=== PATIENT | female | born 1985 | race Caucasian/White ===

== ENCOUNTER 2024-11-02 13:30 | Outpatient (CLI) | payer BC, SELFPAY ==
--- NOTE | 2024-11-02 13:45 | CRLHL7_ITS ---
For Patients: As a result of the Cures Act, medical imaging exams and procedure reports are released immediately into your electronic medical record. You may view this report before your referring provider. If you have questions, please contact your health care provider. OB ULTRASOUND FIRST TRIMESTER INDICATION: Dating and viability. TECHNIQUE: Real time smith scale imaging of the fetus was performed. transvaginal. LMP: 09/02/2024. RICKIE by LMP: 06/09/2025. GA: 8 w, 5 d. Previous US: No. CRL: 2.3 cm. 9 w 0 d. RICKIE: 06/07/2025. FHR: 173 BPM. Gestational sac: 3.8 cm. Appears within normal limits. Yolk sac: 4.2 mm. Appears within normal limits. Right ovary: 4.2 x 2.1 x 3.3 cm. Left ovary: 4.9 x 2.1 3.0 cm. CL. IMPRESSION: 1. Single living intrauterine with sonographic gestational age 9 weeks 0 days and sonographic due date 06/07/2025. Exam performed with transvaginal technique. 2. Likely chronic endometrioma within the right ovary measuring 2.1 x 1.2 x 2.1 cm. 3. Right anterior intramural fibroid measures 2.6 x 2.1 x 2.7 cm. 4. Inferior subchorionic hemorrhage measures 2.4 x 1.2 x 1.9 cm. 5. Incidental corpus luteal cyst left ovary. Manuel Botello M.D. Diagnostic Radiologist [email or web address] THUAN/radha JR/Dictated by: Manuel Botello MD @ 11/03/2024 9:56:00 AM (Electronically Signed)
== END 2024-11-02 13:31 | disposition home or self-care (01) ==
LOC: US 13:32
PROVIDERS: PCP Physician Assistant; Visit Provider Physician Assistant
DX: Z34.91 Encounter for supervision of normal pregnancy, unspecified, first trimester (principal)
CPT/HCPCS: 76817; 83021; 86592; 86703; 86704; 86706; 86762; 86787; 86803; 86850; 86900; 86901; 87086; 87340; 87491; 87591

== ENCOUNTER 2024-12-04 13:14 | Outpatient (CLI) | payer BC, SELFPAY | END 2024-12-04 13:15 | disposition home or self-care (01) | LOC: NFLDREF 12-07 04:02 | PROVIDERS: Visit Provider Obstetrics & Gynecology | DX: R39.9 Unspecified symptoms and signs involving the genitourinary system (principal) | CPT/HCPCS: 87086 ==

== ENCOUNTER 2025-01-24 11:54 | Outpatient (CLI) | payer BC, SELFPAY | END 2025-01-24 11:55 | disposition home or self-care (01) | LOC: US 11:54 | PROVIDERS: Visit Provider Obstetrics & Gynecology | DX: O09.522 Supervision of elderly multigravida, second trimester (principal); Z3A.20 20 weeks gestation of pregnancy | CPT/HCPCS: 76811 ==

== ENCOUNTER 2025-03-01 18:39 | Outpatient (CLI) | payer BC, SELFPAY ==
--- NOTE | 2025-03-01 18:57 | W.PM.OBO ---
OB Outpatient HPI History of Present Illness Date Seen: 03/01/25 History of Present Illness: Aby is a 39 yo woman at 25 5/7 weeks' gestation who calls triage line with complaint of sudden onset of sharp lower abdominal pain after moving from bent to standing position. This began suddenly this afternoon. She has persistent pain at that same site on her left abdomen. She denies bleeding or loss of fluid. OB Problem List: # history of myomectomy and treatment for endometriosis, with 4 fibroids being removed, largest transmural 7-8 cm, endometrial cavity entered Operative report is scanned Surgeon recommended delivery. Will treat as classical uterine incision, with delivery at 37 weeks gestation, per MFM. Growth US at 30-32 weeks: Scheduled with M 04/11/2025 [] # AMA Genetic screening: low risk, male, carrier screening pending Level 2 ultrasound: 01/24/2025 (see below) # depression Lexapro 20 mg # BMI 34.2 Aspirin 81 mg Hemoglobin A1c: 5.3 # tobacco use. 15 cigarettes per day pre . At new OB was down to 1-2 per day, feels she is close to quitting Offered nicotine replacement products, she will reach out if she feels she needs them # varicella nonimmune Immunization # right ovarian cyst, likely endometrioma Meds Home Medications and Allergies Home Medications ?Medication ?Instructions ?Recorded ?Confirmed ?Type [id number] 3-fat com #1 27 cap PO 11/02/24 02/28/25 History mg-1 mg-300 mg capsule acetaminophen 500 mg tablet 500 mg PO Q6H PRN 11/02/24 03/01/25 History (Tylenol Extra Strength) escitalopram oxalate 20 mg tablet 20 mg PO QDAY 11/02/24 03/01/25 History (Lexapro) cat hair std allergenic ext 1 ml .Route MONTHLY 11/27/24 03/01/25 History aspirin 81 mg chewable tablet 81 mg PO QDAY 12/25/24 03/01/25 History famotidine 20 mg tablet (Pepcid) 20 mg PO BID 03/01/25 03/01/25 History Allergies Allergy/AdvReac Type Severity Reaction Status Date / Time cefaclor ([facility] Allergy Intermediate Rash Verified 03/01/25 19:03 cats Allergy Uncoded 02/28/25 11:37 [facility] Surgical History (Updated 12/25/24 @ 17:03 by Maria M Curran MD) History of myomectomy ?Z98.890 - Other specified postprocedural states (ICD-10) Social History (Updated 11/02/24 @ 15:35 by Rhea Sykes PA-C) Narrative: 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 Marital status: . Yarsanism/cultural needs: no. Chemical or radiation exposure: no. Pre- tobacco use: 15 per day. Pre- alcohol use: Twice per month Current tobacco use: 1-2 per day. Current alcohol use: no. Recreational drug use: no. Dietary restrictions: no. Blood transfusion acceptable in an emergency: yes. PSYCHOSOCIAL HISTORY: History of depression or currently depressed: yes. Current or past physical, emotional, or sexual mistreatment: Denies. Problems that will make it hard to make it to appointments: Denies. What is your current living situation?: I presently have a place to live Problems where you live: no known problems In the past 12 months, utilities in danger of being shut off: no In past 12 months, lack of transportation kept you from medical appts, meetings, work, or getting things needed for daily living: no In the past 12 mos, have been you worried that your food would run out before you had money to buy more?: never true In the past 12 mos, the food you bought just didn't last and you didn't have money to buy more?: never true Smoking Status: Former smoker How often does anyone, including family, friends and others, physically hurt you: never How often does anyone, including family, friends and others, insult or talk down to you: never How often does anyone, including family, friends and others, threaten you with harm: never How often does anyone, including family, friends and others, scream or curse at you: never History History 2 Elective abortions Para 0 Spontaneous abortions 1 Hx # Term Pregnancies Ectopic pregnancies Hx # Pregnancies Multiple births Number of Living Children 0 OB - H&P: Exam Physical Exam Narrative: Gen - NAD Abd - Soft, uterus nontender in general. There is one site adjacent to the left cornual area that is tender to the touch, but the fundus itself is not tender. No groin pain. NST: Baseline 140 / accelerations to 150 / no decelerations / moderate variability. No contractions on monitor Assessment and Plan Assessment and plan (1) , high-risk: Status: Acute (2) Abdominal pain affecting : Status: Acute Plan I favor abdominal wall pain as etiology. I am not suspicious for abruption given soft uterus that is not general tender and lack of bleeding. status is reassuring I recommended Tylenol and application of heat or cold. We discussed option of muscle relaxant should symptoms persist. She is to call if symptoms worsen.
[2025-03-01 19:03] VITALS: BP 124/74; PULSE 89; PULSE 93; RESP 16; TEMP 36.8; O2SAT 98
[2025-03-01] MEDS: ACETAMINOPHEN 500 MG TABLET 1000 MG PO (19:45)
[2025-03-01 19:47] LABS: Appearance Urine Slightly Cloudy (Clear); Bilirubin Urine Negative (Negative); Blood Urine Negative (Negative); Glucose Urine Negative (Negative); Ketones Urine Trace (Negative); Leukocyte Esterase Urine Negative (Negative); Nitrite Urine Negative (Negative); Protein Urine Trace (Negative); Specific Gravity Urine 1.025 (1.000-1.030); Urobilinogen Urine 0.2 (0.2-1.0); pH Urine 6.5 (5.0-8.5)
--- NOTE | 2025-03-01 20:13 | PC.OBNST ---
NST Note NST Note Start: 03/01/25 18:45 Freq: ONCE Status: Active Protocol: Document 03/01/25 20:12 DOUG (Rec: 03/01/25 20:13 DOUG [id number]) NST Note 2 Para (# of births) 0 EDC 06/09/25 Gestational Age In Weeks & Days 25 Weeks & 5 Days Patient Presented with Complaint(s) of Pain If Pain, describe location Left sided abdominal pain Reactive Yes Appropriate for Gestational Age Yes BETY Fabian, BETY Date 03/01/25 Reactive Yes Appropriate for Gestational Age Yes BETY Torre, BETY Date 03/01/25 OB NST charge Yes Complete NST Note via Write Note Yes The provider's electronic signature indicates the NST is reactive/appropriate for gestational age. *Note to provider: If an addendum is required, open the patient's chart and click on the note under the Nurse/Allied Health tab.
[2025-03-01 20:20] LABS: Color Urine Dark yellow (Yellow)
[2025-03-01 20:21] LABS: Amorphous Sediment Urine Few; RBC Urine 0-2 (0-2); Squamous Epithelial Cell Urine Few (None-Few); WBC Urine 0-2 (0-5)
[2025-03-01 20:22] LABS: Calcium Oxalate Crystals Urine Few; Mucus Urine Few
== END 2025-03-01 19:53 | disposition home or self-care (01) ==
LOC: OB OUT 18:40 → OB 18:40
PROVIDERS: Visit Provider Obstetrics & Gynecology
DX: O26.892 Other specified pregnancy related conditions, second trimester (principal); R10.9 Unspecified abdominal pain; Z3A.25 25 weeks gestation of pregnancy
CPT/HCPCS: 59025; 81001; 81003; 87086; G0463; A9270

== ENCOUNTER 2025-03-20 11:17 | Outpatient (CLI) | payer BC, SELFPAY | END 2025-03-20 11:18 | disposition home or self-care (01) | LOC: NFLDREF 03-22 17:08 | PROVIDERS: Visit Provider Obstetrics & Gynecology | DX: Z34.93 Encounter for supervision of normal pregnancy, unspecified, third trimester (principal); Z3A.28 28 weeks gestation of pregnancy | CPT/HCPCS: 86592 ==

== ENCOUNTER 2025-03-22 08:33 | Outpatient (CLI) | payer BC, SELFPAY | END 2025-03-22 08:34 | disposition home or self-care (01) | LOC: NFLDREF 03-24 04:21 | PROVIDERS: Visit Provider Obstetrics & Gynecology | DX: O24.419 Gestational diabetes mellitus in pregnancy, unspecified control (principal) | CPT/HCPCS: 82951; 82952 ==

== ENCOUNTER 2025-04-11 11:36 | Outpatient (CLI) | payer BC, SELFPAY ==
--- OUTSIDE RECORDS SUMMARY | 2025-04-11 11:39 | XMS_ITS | Clinical Summary ---
Author Organization [facility] Address [address] [place] [id number] Care Team Providers Care Systems Design Engineer Name Role Phone Clinic, No Pcp Or Primary Care Provider Unavaila ble Allergies Active Allergy Reactions Criticality Noted Date Comments Cats (Fur, Dander, Saliva) 0 Cefaclor Rash Medium 06/06/2010 Chlorpheniramine-Phenylpropan *Unknown 2024 Medications ibuprofen (ADVIL; MOTRIN) 800 mg tabletIndications :Dysmenorrhea TAKE 1 TABLET BY MOUTH EVERY 8 HOURS WITH FOOD IF NEEDED FOR MENSTRUAL CRAMPS. 60 Tablet 11/21/19 22 Active acetaminophen (TYLENOL) 325 mg tabletIndications :Fibroids, submucosal Take 1-2 Tablets (325-650 mg) by mouth every 4 hours if needed (mild pain). Max acetaminophen dose: 4000mg in 24 hrs. 100 Tablet 02/14/20 22 Active INHALANT IMMUNOTHERAPY 4 Vial Active INHALANT IMMUNOTHERAPY 4 Vial Active INHALANT IMMUNOTHERAPY Inject subcutaneous. Cats, Ragweed, Dust Mites, Cockroach, Mold, Mice, Grass, trees and Weeds 03/09/20 22 Active escitalopram oxalate (LEXAPRO) 20 mg tabletIndications :Anxiety disorder, unspecified type,Moderate episode of recurrent major depressive disorder (HC) Take 1 Tablet (20 mg) by mouth once daily. 90 Tablet 3 04/03/20 24 Active econazole nitrate cream 1 % creamIndications: Tinea versicolor Apply thin layer to affected areas daily until resolved, then once weekly for maintenance. 85 g 2 02/21/20 25 Active Active Problems Problem Noted Date Diagnosed Date Vitamin D deficiency 01/06/2021 Low ferritin 01/06/2021 Allergic conjunctivitis, bilateral 07/06/2019 Allergic rhinitis 07/06/2019 Overview (02/01/2025): Immunotherapy: 03/09/2022 (gets them at [facility]) - 2024 Antigens: Vial A: Mice, Grass, Trees & Weeds Vial B: Cats, Ragweed, Dust Mites, Cockroach & Rhizopus Endometriosis 05/12/2014 Family history of endometriosis 04/09/2014 Dysmenorrhea 04/09/2014 Major depression 03/07/2014 Anxiety disorder 03/07/2014 Eczema Cat allergies Fibroids, submucosal Estimated Date of Delivery Comme nts Yes 06/09/2025 Resolved Problems Problem Noted Date Diagnosed Date Resolved Date Primary dysmenorrhea 05/12/2014 021 Low back pain 04/09/2014 04/03/2024 Encounters Date Type Department Care Team Description 03/15/2025 1:00 PM CDT Nurse/Clinic Staff Only [facility] [address] [place] [address] Immunization/Inject ion (ALLERGY INJECTIONS ) 03/15/2025 Travel 02/20/2025 11:40 AM CDT Telemedicine [facility] [address] [address] Sierra Kimball PA Telehealth (no vitals taken today) 02/20/2025 Travel 02/12/2025 1:00 PM CDT Nurse/Clinic Staff Only [facility] [address] [place] [address] Immunization/Inject ion (ALLERGY INJECTIONS ) 02/12/2025 Travel 02/01/2025 9:30 AM CDT Telemedicine [facility] [address] [facility] [address] [facility] [address] [place] [address] Paul Ash MD Telehealth (No vitals taken); Follow Up (Follow up on allergy shots, doing well, no concerns) 02/01/2025 Travel 01/15/2025 1:00 PM CDT Nurse/Clinic Staff Only [facility] [address] [facility] [place] [address] Immunization/Inject ion (ALLERGY INJECTIONS ) 01/15/2025 Travel from Last 3 Months Immunizations Immunization Administration Dates Next Due COVID-19 vaccine ([employer] 30mcg/0.3mL) P F, MDV 11/28/2020,11/08/2020 MMR 05/27/2000 Td (Age >=7 Years) 05/27/2010,05/27/2000 Tdap 03/02/2017 Family History Medical History Relation Name Comments Heart Disease Father Other Maternal Aunt endometriosis/ heavy cycles? Cancer-ovarian Maternal Grandmother Other Maternal Grandmother uterine issues? Endometriosis Mother Relation Name Status Comments Brother Alive Father (Age 60) Maternal Aunt Maternal Grandmother Mother Alive Social History Tobacco Use Types Packs/Day Years Used Date Smoking Tobacco: Former Cigarettes 1 16 0 10/18/2008 - 11/03/2024 Smokeless Tobacco: Never Tobacco Cessation:Counseling Given: Not Answered Alcohol Use Standard Drinks/Week Comments Not Currently 2 (1 standard drink = 0.6 oz pur e alcohol) twice/week PHQ-2 Answer Date Recorded PHQ-2 TOTAL SCORE 1 04/03/2024 Social Connections Answer Date Recorded Do you often feel lonely or isolated from those around you? 0 04/03/2024 Financial Resource Strain Answer Date R ecorded Difficulty of Paying Living Expenses 3 04/03/2024 Difficulty of Paying Living Expenses Not on file 04/03/2024 Food Insecurity Answer Date Recorded Do you worry your food will run out before you are able to buy more? 1 04/03/2024 Transportation Needs Answer Date Record ed Does lack of transportation keep you from medica l appointments? 1 04/03/2024 Does lack of transportation keep you from work, meetings or getting things that you need? 1 04/03/2024 Housing Stability Answer Date Recorded What is your housing situation today? 1 04/03/2024 Utilities Answer Date Recorded Do you have trouble paying f or utilities (for example, heat, electricity, water, phone)? 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 Gender Identity Not on file Sexual Orientation Not on file Occupation Industry Job Start Date Job End Date STUDENT Not on file Not on file Not on file Obstetrics History Para Term AB IAB SAB Ectopic Multiple Livin g Live Births 2 0 0 0 1 0 1 0 0 0 0 Date Outcome GA Total Labor Labor/2nd/3rd Weight Sex Type Anes PTL Juhi A1 A5 Name Clin SAB Current Last Filed Vital Signs Vital Sign Reading Time Taken Comments Blood Pressure 128/78 04/03/2024 7:33 AM CDT Pulse 79 04/03/2024 7:33 AM CDT Temperature 36.8 C (98.2 F) 01/27/2023 9:24 AM CDT Respiratory Rate 16 01/27/2023 9:24 AM CDT Oxygen Saturation 99% 11/01/2023 12:48 PM PACKING AND FINAL ASSEMBLY SUPERVISOR Inhaled Oxygen Concentration - - Weight 83.2 kg (183 lb 8 oz) 04/03/2024 7:33 AM CDT Height 161 cm (5' 3.39) 04/03/2024 7:33 AM CDT Body Mass Index 32.11 04/03/2024 7:33 AM CDT Plan of Treatment Health Maintenance Due Date Last Done Comments Hepatitis B series for 19+ (1 of 3 - 19+ 3-dose series) 2005 Pap test for age 21-65 01/04/2024 , 04/04/2018, 04/01/2015 ([facility]) COVID-19 vaccine series ( season) 2024 11/28/2020, 11/08/2020 BMI (ht and wt on same day) for age 18+ 04/03/2025 04/03/2024, 09/21/2022, 07/06/2022, Additional history exists Depression screening for age 12+ 04/03/2025 04/03/2024, 05/12/2023, 04/13/2022, Additional history exists Influenza Vaccine (Season Ended) 2025 Tetanus booster 03/02/2027 03/02/2017, 05/18, 05/27/2000 Tdap Completed 03/02/2017 HIV for age 15-65 Completed 04/03/2024 Hepatitis C screening for age 18-79 Completed 04/03/2024 Pneumococcal series for age 6-49 Aged Out No longer eligible based on patient's age to complete this topic RSV vaccine for adults or (No Doses Required) Completed Procedures Procedure Name Priority Date/Time Associated Diagnosis Comments ANTI HIV 1/2 Routine 04/03/2024 8:37 AM CDT Encounter for screening for HIV ANTI HCV Routine 04/03/2024 8:37 AM CDT Need for hepatitis C screening test FURNACE CHECKER THIN PREP PAP SCREEN IMAGED Routine 01/03/2021 1:00 PM CDT Cervical cancer screening from Last 3 Months or Most Recently Relevant to Health Maintenance Results * ANTI HCV (04/03/2024 8:37 AM CDT) HEPATITIS C ANTIBODY Non-Reacti ve Non-React nehemias 04/03/2024 2:00 PM CDT [facility] [employer] Comment:Please note, per www .CDC.gov: If a patient is known to be at high risk of HCV infection, or is symptomatic, and the physician's suspicion of HCV infection is high, HCV RNA testing is often employed and is of diagnostic value, even after an initial negative anti-HCV test result. Blood BLOOD SPECIMEN / Unknown Venipuncture / Unknown 04/03/2024 8:37 AM CDT 04/03/2024 8:37 AM CDT Swathi PRADO SEND OUTS Final Result [facility] [address] [place] [address], * ANTI HIV 1/2 (04/03/2024 8:37 AM CDT) HIV-1/HIV-2 SCREEN Non-Reacti ve Non-Reacti ve 04/03/2024 2:57 PM CDT [facility] Comment:HIV-1 p24 and HIV-1/ HIV-2 Ab Not Detected. Blood BLOOD SPECIMEN / Unknown Venipuncture / Unknown 04/03/2024 8:37 AM CDT 04/03/2024 8:37 AM CDT us Swathi PRADO SEND OUTS Final Result [facility] [employer] [facility] [address] [place] [address], [place] * FURNACE CHECKER THIN PREP PAP SCREEN IMAGED (01/03/2021 1:00 PM CDT) Case Report Gynecologic Cytology Report Case: [id number] Authorizing Provider: Kisha Mccoy PA Collected: 01/03/2021 1300 Ordering Location: [facility] [place] Received: 01/03/2021 1719 Clinic First Screen: [place] Specimen: FURNACE CHECKER ThinPrep Vial Screening, Cervical 01/14/2021 6:51 PM CDT [facility] INTERPRETATION/ RESULT NEGATIVE FOR INTRAEPITHELIAL LESION OR MALIGNANCY (NIL) (none) 01/14/2021 6:51 PM CDT [facility] [employer] [facility] at 1851 CDT ORGANISM(S) Shift in rodney suggestive of bacterial vaginosis 01/14/2021 6:51 PM CDT [facility] SPECIMEN ADEQUACY Satisfactory for evaluation No endocervical component seen 01/14/2021 6:51 PM CDT [facility] [employer] [facility] HPV REQUEST HPV if ASCUS 01/14/2021 6:51 PM CDT [facility] [employer] [facility] Date of LMP 12/23/2020 01/14/2021 6:51 PM CDT [facility] [employer] [facility] Last Pap Date 04/04/18 01/14/2021 6:51 PM CDT [facility] Last Pap Result NIL 6:51 PM CDT [facility] Abnormal Pap or [place] Bx in last 5 years No 01/14/2021 6:51 PM CDT [facility] Menstrual Status Regular Periods 01/14/2021 6:51 PM CDT [facility] [place] Bx Done Today No 01/14/2021 6:51 PM CDT [facility] Additional Information None given 01/14/2021 6:51 PM CDT [facility] Comment: Cytology is screened at [facility] - [address], [place] [address] and [facility] - [address], [place] [address] and [facility] - [address] [place] [address] [facility] - [address], [place] [address] Automated Review Successful 01/14/2021 6:51 PM CDT [facility] Comment:Specimen processed s uccessfully by automated core filer device, ThinPrep Imaging System, [employer] Note The pap test is a screening technique, not a diagnostic procedure. It is used primarily to screen for squamous cancers and precursor lesions. Published studies have shown that it is subject to both false negative and false positive results. The pap test should not be used as the sole means to diagnose or exclude pre-malignant and malignant lesions. 01/14/2021 6:51 PM CDT [facility] Other (Cervical) Non-Blood / Unknown 01/03/2021 1:00 PM CDT 01/03/2021 5:19 PM CDT us Kisha PRADO PATHOLOGY/CYTOLOGY Final Resul t [facility] [address] [place] [address], [place] from Last 3 Months or Most Recently Relevant to Health Maintenance Insurance [facility] Advance Directives * Full Code (Latest Code Status on File) Date Activated Date Inactivated Comments 02/13/2022 11:33 AM 02/13/2022 5:26 PM Question Answer Comments Code Status Discussion: Unable to Assess Preferences, Provider to review later Care Teams Systems Design Engineer Relationship Specialty Start Date End Date Clinic, No Pcp Or . PCP - General 09/21/22
--- OUTSIDE RECORDS SUMMARY | 2025-04-12 00:34 | XMS_ITS | Clinical Summary ---
Author Organization [employer] [facility] Address [address] [place] [id number] Care Team Providers Care Pediatric Immunologist Name Role Phone Clinic, No Pcp Or [...] Overview (02/01/2025): Immunotherapy: 03/09/2022 (gets them at [facility]) - 2024 Antigens: Vial A: Mice, Grass, [...] 03/15/2025 1:00 PM CDT Nurse/Clinic Staff Only [facility] [address] [place] [address] Immunization/Inject ion (ALLERGY INJECTIONS ) 03/15/2025 Travel 02/20/2025 11:40 AM CDT Telemedicine [facility] [address] [address] Sierra Kimball PA Telehealth (no vitals taken today) 02/20/2025 Travel 02/12/2025 1:00 PM CDT Nurse/Clinic Staff Only [facility] [address] [place] [address] Immunization/Inject ion (ALLERGY INJECTIONS ) 02/12/2025 Travel 02/01/2025 9:30 AM CDT Telemedicine [facility] [address] [facility] [address] [facility] [address] [place] [address] Paul Ash MD Telehealth (No vitals taken); Follow Up (Follow up on allergy shots, doing well, no concerns) 02/01/2025 Travel 01/15/2025 1:00 PM CDT Nurse/Clinic Staff Only [facility] [address] [facility] [place] [address] Immunization/Inject ion (ALLERGY INJECTIONS ) 01/15/2025 Travel from Last 3 Months Immunizations Immunization Administration Dates Next Due COVID-19 vaccine ([employer] 30mcg/0.3mL) P F, MDV 11/28/2020,11/08/2020 MMR 05/27/2000 [...] on file Legal 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 Gender Identity Not on file Sexual Orientation [...] CDT Oxygen Saturation 99% 11/01/2023 12:48 PM PURCHASE REQUEST EDITOR Inhaled Oxygen Concentration - - Weight 83.2 [...] 01/04/2024 , 04/04/2018, 04/01/2015 [facility] COVID-19 vaccine series ( season) 2024 11/28/2020, [...] CDT Need for hepatitis C screening test PROVINCE ARCHIVIST THIN PREP PAP SCREEN IMAGED Routine 01/03/2021 1:00 PM CDT Cervical cancer screening from Last 3 Months or Most Recently Relevant to Health Maintenance Results * ANTI HCV (04/03/2024 8:37 AM CDT) HEPATITIS C ANTIBODY Non-Reacti ve Non-React nehemias 04/03/2024 2:[address] [facility] Comment:Please note, per www .CDC.gov: [...] CDT Swathi PRADO SEND OUTS Final Result [facility] [address] [place] [address], * ANTI HIV 1/2 (04/03/2024 8:37 AM CDT) HIV-1/HIV-2 SCREEN Non-Reacti ve Non-Reacti ve 04/03/2024 2:57 PM CDT [facility] Comment:HIV-1 p24 and HIV-1/ HIV-2 Ab Not Detected. Blood BLOOD SPECIMEN / Unknown Venipuncture / Unknown 04/03/2024 8:37 AM CDT 04/03/2024 8:37 AM CDT us Swathi PRADO SEND OUTS Final Result [facility] [address] [place] [address], [place] * PROVINCE ARCHIVIST THIN PREP PAP SCREEN IMAGED (01/03/2021 1:00 PM CDT) Case Report Gynecologic Cytology Report Case: [id number] Authorizing Provider: Kisha Mccoy PA Collected: 01/03/2021 1300 Ordering Location: [employer] [place] Received: 01/03/2021 1719 Clinic First Screen: [employer] Specimen: PROVINCE ARCHIVIST ThinPrep Vial Screening, Cervical 01/14/2021 6:51 PM CDT [facility] INTERPRETATION/ RESULT NEGATIVE FOR INTRAEPITHELIAL LESION OR MALIGNANCY (NIL) (none) 01/14/2021 6:51 PM CDT [facility] at 1851 CDT ORGANISM(S) Shift in rodney suggestive of bacterial vaginosis 01/14/2021 6:51 PM CDT [facility] SPECIMEN ADEQUACY Satisfactory for evaluation No endocervical component seen 01/14/2021 6:51 PM CDT [facility] HPV REQUEST HPV if ASCUS 01/14/2021 6:51 PM CDT [facility] Date of LMP 12/23/2020 01/14/2021 6:51 PM CDT [facility] Last Pap Date 04/04/18 01/14/2021 6:51 PM CDT [facility] Last Pap Result NIL 6:51 PM CDT [facility] Abnormal Pap or [place] Bx in last 5 years No 01/14/2021 6:51 PM CDT [facility] Menstrual Status Regular Periods 01/14/2021 6:51 PM CDT [facility] [place] Bx Done Today No 01/14/2021 6:51 PM CDT [facility] Additional Information None given 01/14/2021 6:51 PM CDT [facility] Comment: Cytology is screened at [facility] - [address], [place] [address] and [facility] - [address], [place] [address] and [facility] - [address] [place] [address] Interpreted at [facility] - [address], [place] [address] Automated Review Successful 01/14/2021 6:51 PM CDT [facility] Comment:Specimen processed s uccessfully by automated trim machine adjuster device, ThinPrep Imaging System, [email or web address] Note The pap test is a [...] and malignant lesions. 01/14/2021 6:51 PM CDT [facility] Other (Cervical) Non-Blood / Unknown 01/03/2021 1:00 PM CDT 01/03/2021 5:19 PM CDT us Kisha PRADO PATHOLOGY/CYTOLOGY Final Resul t [facility] [address] [place] [address], [place] from Last 3 Months or Most Recently Relevant to Health Maintenance Insurance [facility] Advance Directives * Full Code (Latest Code Status on File) Date Activated Date Inactivated Comments 02/13/2022 11:33 AM 02/13/2022 5:26 PM Question Answer Comments Code Status Discussion: Unable to Assess Preferences, Provider to review later Care Teams Pediatric Immunologist Relationship Specialty Start Date End Date Clinic, No Pcp Or . PCP - General 09/21/22
== END 2025-04-11 11:37 | disposition home or self-care (01) ==
PROVIDERS: Visit Provider Obstetrics & Gynecology
DX: O09.523 Supervision of elderly multigravida, third trimester (principal); O99.213 Obesity complicating pregnancy, third trimester; O24.419 Gestational diabetes mellitus in pregnancy, unspecified control; O09.93 Supervision of high risk pregnancy, unspecified, third trimester; Z3A.31 31 weeks gestation of pregnancy
CPT/HCPCS: 76816

== ENCOUNTER 2025-04-18 13:18 | Outpatient (CLI) | payer BC, SELFPAY | END 2025-04-18 13:19 | disposition home or self-care (01) | LOC: NFLDREF 13:19 | PROVIDERS: Visit Provider Registered Nurse | DX: O47.9 False labor, unspecified (principal) | CPT/HCPCS: 87086 ==

== ENCOUNTER 2025-04-27 12:46 | Outpatient (CLI) | payer BC, SELFPAY ==
--- NOTE | 2025-04-27 13:45 | CRLHL7_ITS ---
For Patients: As a result of the Century Cures Act, medical imaging exams and procedure reports are released immediately into your electronic medical record. You may view this report before your referring provider. If you have questions, please contact your health care provider. INDICATION: Gestational diabetes COMPARISON: Obstetric ultrasound on April 11, 2025 and priors TECHNIQUE: Obstetric ultrasound, biophysical profile examination, transabdominal approach, utilizing grayscale and color Doppler as needed. FINDINGS: number: 1 heart rate: 143 bpm. Position: Vertex. Placental Position: Anterior. Amniotic fluid: DVP 9 cm, GONZALO 24 cm Cervix: Not visualized BPP Score: Fluid: 2 Breathin Movement: 2 Tone: 2 Total: 6 IMPRESSION: 1. Biophysical profile score of 6 with no points for respiratory activity. 2. GONZALO at the upper limits of normal measuring 24 centimeters. Dictated by James King MD @ 04/27/2025 2:35:54 PM (Electronically Signed)
== END 2025-04-27 12:47 | disposition home or self-care (01) ==
LOC: US 12:46
PROVIDERS: Visit Provider Physician Assistant
DX: Z34.90 Encounter for supervision of normal pregnancy, unspecified, unspecified trimester (principal)
CPT/HCPCS: 76819

== ENCOUNTER 2025-04-28 10:10 | Outpatient (CLI) | payer BC, SELFPAY ==
--- NOTE | 2025-04-28 10:14 | CRLHL7_ITS ---
For Patients: As a result of the Century Cures Act, medical imaging exams and procedure reports are released immediately into your electronic medical record. You may view this report before your referring provider. If you have questions, please contact your health care provider. INDICATION: Biophysical profile. COMPARISON: BPP from April 27, 2025. Technique : Biophysical profile. Findings: Gross body movements, tone and respiratory activity are unremarkable. Largest amniotic fluid pocket measures 8.6 cm in depth. BPP score is 8/8. The placenta is anterior with no previa. heart rate 132 beats per minute and regular. Single viable intrauterine gestation of 34 weeks duration. Impression: 1. BPP score 8/8. 2. heart rate 132 beats per minute and regular. Dictated by Andres Moreno MD @ 04/28/2025 12:01:56 PM (Electronically Signed)
[2025-04-28 10:24] VITALS: PULSE 105; O2SAT 98
[2025-04-28 10:27] VITALS: BP 127/83; PULSE 106; RESP 16; TEMP 36.8
--- NOTE | 2025-04-28 12:02 | PC.OBNST ---
NST Note NST Note Start: 04/28/25 10:14 Freq: ONCE Status: Active Protocol: Document 04/28/25 12:00 BAW (Rec: 04/28/25 12:02 BAW No Response) NST Note 2 Para (# of births) 0 EDC 06/09/25 Gestational Age In 34 Weeks & 0 Days Weeks & Days High Risk Factors Diabetes - Gestational Diet Controlled Patient Presented Other with Complaint(s) of Other Complaints BPP and NST d/t 03/27 on 04/27/25 Reactive Yes Appropriate for Yes Gestational Age BETY Vazquez RNC Date 04/28/25 Reactive Yes Appropriate for Yes Gestational Age BETY Gonzales MD Date 04/28/25 OB NST charge Yes Complete NST Note Yes via Write Note The provider's electronic signature indicates the NST is reactive/appropriate for gestational age. *Note to provider: If an addendum is required, open the patient's chart and click on the note under the Nurse/Allied Health tab.
== END 2025-04-28 11:40 | disposition home or self-care (01) ==
LOC: OB CLI 10:11 → OB 10:12
PROVIDERS: Visit Provider Obstetrics & Gynecology
DX: O24.419 Gestational diabetes mellitus in pregnancy, unspecified control (principal); Z3A.34 34 weeks gestation of pregnancy
CPT/HCPCS: 59025; 76819; G0463

== ENCOUNTER 2025-05-03 12:04 | Outpatient (CLI) | payer BC, SELFPAY ==
--- NOTE | 2025-05-03 12:15 | CRLHL7_ITS ---
For Patients: As a result of the Cures Act, medical imaging exams and procedure reports are released immediately into your electronic medical record. You may view this report before your referring provider. If you have questions, please contact your health care provider. OB ULTRASOUND BIOPHYSICAL PROFILE, 05/03/2025 CLINICAL HISTORY: GDM. COMPARISON: 04/28/2025, 04/27/2025. TECHNIQUE: Real time smith scale imaging of the fetus was performed. Transabdominal imaging performed. FINDINGS: LMP: 09/02/2024. Gestation: Single. RICKIE by LMP: 06/09/2025. GA: 34 weeks 5 days. Cervix: Not visualized. Positioning: Vertex. Amniotic Fluid: 7.1 cm SDP. BIOPHYSICAL PROFILE: Gross Body Movements: 2 Tone: 2 Respiratory Activity: 2 Amniotic Fluid SDP: 2 Total Score: 8 Placenta: Technique: TA. Placenta Position: Anterior. Dopplers: Heart Rate: 176 bpm. IMPRESSION: Normal biophysical profile score 8/8. Manuel Botello M.D. Diagnostic Radiologist [email or web address] Transcribed: 2:30 pm DW/Dictated by: Manuel Botello MD @ 05/03/2025 1:29:00 PM (Electronically Signed)
== END 2025-05-03 12:05 | disposition home or self-care (01) ==
LOC: US 12:04
PROVIDERS: Visit Provider Physician Assistant
DX: O24.419 Gestational diabetes mellitus in pregnancy, unspecified control (principal)
CPT/HCPCS: 76819

== ENCOUNTER 2025-05-09 13:56 | Outpatient (CLI) | payer BC, SELFPAY ==
--- NOTE | 2025-05-09 14:00 | CRLHL7_ITS ---
For Patients: As a result of the Century Cures Act, medical imaging exams and procedure reports are released immediately into your electronic medical record. You may view this report before your referring provider. If you have questions, please contact your health care provider. INDICATION: Gestational diabetes TECHNIQUE: Ultrasound OB pelvis transabdominal. Real-time smith-scale imaging of the fetus was performed with color Doppler and spectral Doppler analysis of the umbilical artery without stress testing. COMPARISON: 05/03/2025 FINDINGS: Sonographic imaging demonstrates a single living intrauterine gestation. Fetus demonstrates a regular cardiac rate of 149 beats per minute. Fetus has a cephalic orientation. The placenta lies anterior. Amniotic fluid volume appears normal with a MVP of 7.6 cm. breathing movements, motion, and tone were all observed. IMPRESSION: Single viable intrauterine with a biophysical profile 05/25. Dictated by Vitaliy Gerber MD @ 05/09/2025 2:32:24 PM (Electronically Signed)
== END 2025-05-09 13:57 | disposition home or self-care (01) ==
LOC: US 13:56
PROVIDERS: Visit Provider Physician Assistant
DX: O24.419 Gestational diabetes mellitus in pregnancy, unspecified control (principal)
CPT/HCPCS: 76819

== ENCOUNTER 2025-05-09 15:01 | Outpatient (CLI) | payer BC, SELFPAY ==
[2025-05-10 13:21] LABS: Strep B DNA Probe Negative (Negative)
[2025-05-10 13:23] LABS: Strep B Susceptibility Needed? No
== END 2025-05-09 15:02 | disposition home or self-care (01) ==
PROVIDERS: Visit Provider Obstetrics & Gynecology
DX: Z34.83 Encounter for supervision of other normal pregnancy, third trimester (principal)
CPT/HCPCS: 87081; 87653

== ENCOUNTER 2025-05-10 11:00 | Outpatient (RCR) | payer BC, SELFPAY | END 2025-09-07 23:59 | disposition home or self-care (01) | PROVIDERS: Visit Provider Obstetrics & Gynecology | DX: O26.892 Other specified pregnancy related conditions, second trimester (principal); M54.42 Lumbago with sciatica, left side; R10.30 Lower abdominal pain, unspecified; Z51.89 Encounter for other specified aftercare | CPT/HCPCS: 97110; 97112; 97140; 97161; 97530 ==

== ENCOUNTER 2025-05-17 08:09 | Outpatient (CLI) | payer BC, SELFPAY ==
--- NOTE | 2025-05-17 08:15 | CRLHL7_ITS ---
For Patients: As a result of the Century Cures Act, medical imaging exams and procedure reports are released immediately into your electronic medical record. You may view this report before your referring provider. If you have questions, please contact your health care provider. OB ULTRASOUND BIOPHYSICAL PROFILE WITH FOLLOW-UP GROWTH RICKIE by LMP: 06/09/2025. GA: 36 w, 5 d. Single. Surgery: Myomectomy. Comparison: 05/09/2025, 05/03/2025, 04/28/2025. INDICATION: Gestational diabetes. TECHNIQUE: Real time smith scale imaging of the fetus was performed. Transabdominal imaging performed. CERVIX: Not visualized. POSITIONING: Vertex. AMNIOTIC FLUID: - cm. GONZALO. 7.9 cm SDP (N: greater than 2 x 1 cm) BIOPHYSICAL PROFILE: Gross body movements: 2. tone: 2. Respiratory activity: 2. Amniotic fluid: 2. SDP (N: greater than 2 x 1 cm). Total score: 8. PLACENTA: Technique: Transabdominal. PLACENTA POSITION: Anterior. DOPPLER: heart rate: 145 bpm. BIOMETRY: BPD: 9.2 cm. 37 w, 3 d, 82 percent. HC: 33.7 cm. 38 w, 5 d, 70 percent. AC: 34.6 cm. 38 w, 4 d, 95 percent. FL: 7.2 cm. 36 w, 5 d, 50 percent. FL/AC ratio: 20.75 percent. HC/AC ratio: .97. EFW: 3370 g. Weight: 7 lbs, 7 oz. age by this US: 37 w, 6 d. RICKIE by this US: 06/01/2025. Percentile by RICKIE: 86 percent. IMPRESSION: 1. Normal biophysical profile 05/25. 2. Sonographic gestational age 37 weeks 6 days and sonographic due date 06/01/2025. Sonographic age is 8 days ahead of the clinical age. 3. Estimated weight 86th percentile. Abdominal circumference 95th percentile. Manuel Botello M.D. Diagnostic Radiologist [email or web address] SP/Dictated by: Manuel Botello MD @ 05/20/2025 8:46:00 AM (Electronically Signed)
== END 2025-05-17 08:10 | disposition home or self-care (01) ==
LOC: US 08:09
PROVIDERS: Visit Provider Physician Assistant
DX: O24.419 Gestational diabetes mellitus in pregnancy, unspecified control (principal); Z3A.36 36 weeks gestation of pregnancy
CPT/HCPCS: 76816; 76819

== ENCOUNTER 2025-05-21 05:58 | Inpatient (IN) | payer BC, SELFPAY ==
[2025-05-21] VITALS (21 sets, daily range): BP systolic 103–138; BP diastolic 67–86; PULSE 67–97; RESP 16–17; TEMP 36.6–37.9; O2SAT 97–100; BMI 35.6
[2025-05-21] MEDS: LACTATED RINGERS 1000 ML 1,000 ML 900 ML IV (06:40)
[2025-05-21 06:41] LABS: Hematocrit 34.7 % (33.0-51.0); Hemoglobin* 11.7 gm/dL (12.0-16.0); Immature Granulocytes Abs Auto 0.03 K/uL (0.00-0.30); Immature Granulocytes Pct Auto 0.4 %; Lymphocytes Absolute Auto 1.88 K/uL (0.90-2.90); Mean Corpuscular HGB Conc 34 gm/dL (32-36); Mean Corpuscular Hemoglobin 29 pg (26-34); Mean Corpuscular Volume 86 fL (80-100); RDW Coefficient of Variation % 13.2 % (11.5-15.5); Red Blood Count 4.04 m/uL (4.00-5.20); White Blood Count* 6.98 K/uL (4.50-11.00)
[2025-05-21 06:43] LABS: Slide Review Reflex No
--- NOTE | 2025-05-21 07:13 | W.PM.H&PU ---
History & Physical Update History & Physical Update H&P Reviewed and patient assessed: No changes noted H&P Updates: Patient presents for repeat c-seation.
[2025-05-21] MEDS: LACTATED RINGERS 1000 ML 1,000 ML 125 ML IV (07:48)
--- NOTE | 2025-05-21 08:58 | P.ANES_ITS ---
Anesthesia Charges Start Date/Time Anesthesia Start Date: 05/21/25 Anesthesia Start Time: 09:03 Stop Date/Time Anesthesia Stop Date: 05/21/25 Anesthesia Stop Time: 10:38 Coding CPT Codes CPT Codes: ANESTH CS DELIVERY - 03898 ([id number]) P2 - PATIENT W/MILD SYST DISEASE, QK - AGENCY OWNER 2-4 CNCRNT ANES PROC, QX - FEED HOUSE SUPERVISOR SVC W/ MD MED DIRECTION
--- NOTE | 2025-05-21 08:58 | W.ANESCHARGE ---
Anesthesia Charges Start Date/Time Anesthesia Start Date: 05/21/25 Anesthesia Start Time: 09:03 Stop Date/Time Anesthesia Stop Date: 05/21/25 Anesthesia Stop Time: 10:38 Coding CPT Codes CPT Codes: ANESTH CS DELIVERY - 86682 ([id number]) P2 - PATIENT W/MILD SYST DISEASE, QK - HARDENING MACHINE OPERATOR HELPER 2-4 CNCRNT ANES PROC, QX - ILLUSTRATOR SET SVC W/ MD MED DIRECTION
[2025-05-21] MEDS: CLINDAMYCIN 900 MG/50 ML-D5W 900 MG/50 ML PIGGYBACK 100 MG IVPB (09:16)
--- NOTE | 2025-05-21 09:46 | W.PM.NB ---
Nerve Block Nerve Block Time Seen by Provider: 10:27 Date Seen: 05/21/25 Type of block requested by surgeon for post-operative analgesia: TAP Side: bilateral Time out performed: Yes Verification of patient name: Yes Verification of date of : Yes Site marking: site marked Name of person performing procedure: Raad Dover Continuous monitoring Was continuous monitoring of O2 sat, B/P, monitor and storage bin tender, recorded every 15 minutes?: Yes Procedure Checklist: sterile prep, needles and gloves Ultrasound guided. Images saved: Yes Medications given in 5ml increments after negative aspiration: Marcaine %: 0.25 mL: 30 Needle gauge: 20 and Exparel mL: 10 Needle gauge: 20 Patient tolerated procedure well: Yes Additional comments: Injected in 5 mL increments after negative aspiration Block Charges Block Charge (with Pro Fee): TAP Bilateral Use of Ultrasound Machine for Block: Yes- US Guidance/pain block
--- NOTE | 2025-05-21 09:47 | P.ANES_ITS ---
Anesthesia Charges Start Date/Time Anesthesia Start Date: 05/21/25 Anesthesia Start Time: 09:03 Stop Date/Time Anesthesia Stop Date: 05/21/25 Anesthesia Stop Time: 10:38 Coding CPT Codes CPT Codes: ANESTH CS DELIVERY - 42749 ([id number]) P2 - PATIENT W/MILD SYST DISEASE, QK - RAILROAD BRAKEMAN 2-4 CNCRNT ANES PROC, QX - ELECTRONIC PAGE MAKEUP SYSTEM OPERATOR SVC W/ MD MED DIRECTION
--- NOTE | 2025-05-21 09:47 | W.ANESCHARGE ---
Anesthesia Charges Start Date/Time Anesthesia Start Date: 05/21/25 Anesthesia Start Time: 09:03 Stop Date/Time Anesthesia Stop Date: 05/21/25 Anesthesia Stop Time: 10:38 Coding CPT Codes CPT Codes: ANESTH CS DELIVERY - 79029 ([id number]) P2 - PATIENT W/MILD SYST DISEASE, QK - SHEET ROCK FINISHER 2-4 CNCRNT ANES PROC, QX - TAR HEATER OPERATOR SVC W/ MD MED DIRECTION
--- NOTE | 2025-05-21 10:17 | PM.OBPRCCS ---
Procedure Date of procedure: 05/21/25 Pre-op diagnosis: 1. 37 2/7 weeks gestation 2. History of robotic myomectomy 3. Gestational diabetes A2 4. Possible right endometrioma by ultrasound Post-op diagnosis: other (1. 37 2/7 weeks gestation 2. History of robotic myomectomy 3. Gestational diabetes A2 4. Normal ovaries bilaterally) Procedure Done: Global Will [facility] bill your pro fee for this procedure?: Yes Blood Loss Measurement Type: QBL (863 mL) Bakri Used: No IV fluids (mL): 700 Urine Output (mL): 150 Surgeon: Maria M Curran MD Anesthesia Type: Spinal and TAP Block Findings: Uterus: Three retracted scars on the uterus from prior myomectomy, one in the midline midbody, one posterior lower uterine segment, and one left lower uterine segment. Live-born male infant, cephalic presentation with nuchal cord x2, light meconium staining of the amniotic fluid. Normal-appearing fallopian tubes and ovaries bilaterally. Procedure Name: Primary low transverse section Procedure Description: After obtaining informed consent, the patient was taken to the operating room where spinal anesthesia was obtained and found to be adequate. She was prepared and draped in the normal sterile fashion in the dorsal supine position with a leftward tilt. A Pfannenstiel skin incision was made with a scalpel. This incision was carried down to the underlying layer of fascia with the Bovie. The fascia was incised in the midline and the incision extended laterally. The superior and inferior aspects of the fascial incision were grasped with Yefri clamps, elevated and the underlying rectus muscles dissected off sharply and with electrocautery. The rectus muscles were then in the midline. The Juan Carlos O retractor was then placed into the incision. The bladder reflection was scarred to the lower uterine segment. The vesicouterine peritoneum was identified, grasped with pickups, and entered sharply with Metzenbaum scissors. This incision was extended laterally and a bladder flap created. The lower uterine segment was then incised in a transverse fashion with the scalpel. Upon entry into the uterus, light meconium-stained amniotic fluid was noted. The uterine incision was extended laterally with bandage scissors and blunt finger fractionation. The infant's head was delivered atraumatically, followed by the remainder of the infant's body after reduction of the nuchal cord over the head. The nose and mouth were suctioned with the bulb suction. The cord was doubly clamped and cut, and the was handed off the field to for evaluation. The placenta was delivered spontaneously with umbilical cord traction and fundal massage. The uterus was cleared of all clots and debris. The uterine incision was reapproximated in a running locking fashion with a 0 chromic suture. A 2nd layer of the same suture was used to imbricate in horizontal fashion. The uterus was exteriorized and inspected. The uterus was returned to the abdomen and the hysterotomy incision was found to be hemostatic. All instruments and retractors were removed. The anterior peritoneum was reapproximated in a running fashion with a 3-0 Vicryl suture. The subfascial tissues were carefully inspected and hemostasis assured. The fascia was reapproximated in a running fashion with a looped 0 Maxon suture. The subcutaneous tissues were copiously irrigated. Hemostasis was assured. The subcutaneous fat layer was reapproximated with interrupted sutures of 3-0 plain gut. The skin was closed in a subcuticular fashion with 4-0 Vicryl. Surgical glue and dressing were applied. The patient tolerated the procedure well. Sponge, lap, needle, and instrument counts were reported as correct x2. The patient was taken to the recovery room, awake, and in stable condition. She did receive 900 grams of IV clindamycin preoperatively, as she had a reported cephalosporin allergy. Pathology: specimen obtained, sent to pathology (Placenta) Surgery Debrief Performed: Yes Surgery Debrief Comment: Placenta observed to be in the specimen container and labeled. Disposition: floor
[2025-05-21] MEDS: ACETAMINOPHEN 500 MG TABLET 1000 MG PO ×2 (11:56→18:48)
[2025-05-22 05:00] VITALS: BP 126/84; PULSE 72; RESP 16; TEMP 36.7; O2SAT 99
[2025-05-22 06:18] LABS: Hemoglobin* 11.5 gm/dL (12.0-16.0)
[2025-05-22 08:23] VITALS: BP 120/71; PULSE 81; RESP 16; O2SAT 97
[2025-05-22] MEDS: ACETAMINOPHEN 500 MG TABLET 1000 MG PO ×3 (08:37→21:03)
[2025-05-22] MEDS: DOCUSATE SODIUM 100 MG CAPSULE PO (08:37)
[2025-05-22] MEDS: FAMOTIDINE 20 MG TABLET PO ×2 (08:37→21:03)
--- NOTE | 2025-05-22 11:13 | PM.OBPNVD1 ---
OB - PN:Subj Subjective Time Seen by Provider: 11:00 Date Seen: 05/22/25 Narrative: Aby is a 39 y.o. G 2 P 1 who was admitted to [facility] for primary c/s. ?She had a section that was uncomplicated. The patient feels well. ?The pain is well controlled with current medications. ?She has no new complaints. ?She is breast feeding and reports things are going well. the patient has done well.? Vitals have been stable.? She has remained afebrile.? Has a good appetite, is tolerating a general diet. ?She is voiding without difficulty.? She is passing gas and has not had a bowel movement.? She is ambulating and denies any dizziness.? Has small amount of rubra lochia. Problems: none OB - PN: Obj Exam Physical Exam: Vital signs: Temp Pulse Resp BP Pulse Ox O2 Del Method 98.1 F 81 16 120/71 97 Room Air 05/22/25 05:00 05/22/25 08:23 05/22/25 08:23 05/22/25 08:23 05/22/25 08:23 05/22/25 08:23 Narrative: GENERAL APPEARANCE:? normal affect, alert, no distress MOOD:? appropriate CHEST:? clear to auscultation HEART:? regular rate and rhythm ABDOMEN:? soft, non-tender the uterine fundus is At Umbilicus, Midline and is appropriate for the stage of recovery. EXTREMITIES:? normal and no edema INCISION: Dressing in place; clean, dry, and intact OB - PN: Obj Data Labs Labs: Laboratory Results - last 24 hr 05/22/25 06:10 Hgb 11.5 L OB - PN: A/P Delivery Assessment and Plan (1) care and examination immediately after delivery: Status: Acute (2) GDM, class A2: Status: Acute (3) Lactating mother: Status: Acute (4) Status post primary low transverse section: Status: Acute Plan day: 1 Plan: routine care Comments: , may see if needed? Hgb 11.5. ? GDM A2. Recommend 2 hour gct in the am or at 6 week follow up.? Anticipate discharge tomorrow
[2025-05-22 12:53] VITALS: BP 121/84; PULSE 80; RESP 18; TEMP 36.7; O2SAT 98
[2025-05-22 16:19] VITALS: BP 120/79; PULSE 80; RESP 14; TEMP 36.8; O2SAT 97
[2025-05-22] MEDS: IBUPROFEN 600 MG TABLET PO ×2 (17:26→23:47)
[2025-05-22 23:44] VITALS: BP 114/77; PULSE 78; RESP 16; TEMP 36.7
[2025-05-23] MEDS: ACETAMINOPHEN 500 MG TABLET 1000 MG PO (04:36)
[2025-05-23] MEDS: LANOLIN CREAM 1 APPLIC TOPICAL (04:54)
--- NOTE | 2025-05-23 07:49 | P.DS_ITS ---
DS: Providers Provider Date Seen: 05/23/25 Date of admission: 05/21/25 05:58 Primary care physician: Not a Local Provider Admitting Clinician: Maria M Curran MD Attending Physician on discharge: Patricio Casper CNM Date of Discharge: 05/23/25 DS: Diagnosis Discharge Diagnosis (1) care and examination immediately after delivery: Status: Acute (2) Lactating mother: Status: Acute (3) Status post primary low transverse section: Status: Acute (4) GDM, class A2: Status: Acute Exam Narrative: Exam Narrative: VSS. ?Afebrile GENERAL APPEARANCE: ?normal affect, alert, no distress MOOD: ?appropriate HEENT: normocephalic, neck supple, full ROM CHEST: ?Symmetrical chest wall movement. ?Normal respiratory effort. ?Clear to auscultation HEART: ?regular rate and rhythm ABDOMEN: ?soft, non-tender. Uterine fundus is firm, 1 below Umbilicus, Midline and is appropriate for the stage of recovery. ?Bowel sounds present. EXTREMITIES: ?normal and no edema SKIN: warm, dry. ? ?Incision clean/dry/well approximated. ?No signs of infection noted. Const: Vital Signs, click to edit/add: Vital Signs - 24 hr 05/22/25 08:23 05/22/25 12:53 05/22/25 16:19 Temperature 98.0 F 98.3 F Pulse Rate [Left] 81 80 80 Respiratory Rate 16 18 14 Blood Pressure [Ri ght Arm] 120/71 121/84 120/79 Pulse Oximetry 97 98 97 Oxygen Delivery Me thod Room Air Room Air Room Air 05/22/25 23:44 Temperature 98.0 F Pulse Rate [Left] 78 Respiratory Rate 16 Blood Pressure [Ri ght Arm] 114/77 Pulse Oximetry Oxygen Delivery Me thod Room Air Documenting provider has reviewed patient's vital signs: yes OB - DS: Summary Hospital Course Hospital Course: Aby is a 39 y.o. who was admitted to [facility] for primary C/S. ?She had an uncomplicated .?The patient feels well. ?The pain is well controlled with current medications. ?She has no new complaints. ?She is breast feeding and reports things are going well.? the patient has done well.? Vitals have been stable.? She has remained afebrile.? Has a good appetite, is tolerating a general diet. ?She is voiding without difficulty.? She is passing gas and has not had a bowel movement.? She is ambulating and denies any dizziness.? Has Small amount of rubra lochia. ?She is undecided on her plan for prevention. She is currently doing her 2 hr GTT before discharge. Peripartum Data delivery method: Primary C/S; Non-Labored Procedures: Procedures Operation Date: 05/21/25 07:15 Actual Procedure Side Surgeon p Primary Low Transverse Section Maria M Curran MD complications: none [place] Infant Gender: Male Discharge Plan: Home Status at Discharge Functional status at discharge: independent ambulation Overall status at discharge: patient is progressing back to baseline Time Spent with Patient Time attestation: Total time spent providing and/or coordinating discharge services: Time spent: Less than 30 minutes Discharge Plan Discharge Disposition: Home, Self-Care Date of Admission: 05/21/25 05:58 Attending Provider on Discharge: Patricio Casper Primary Care Provider: Provider,Not a Local Condition: Stable Anticipated Discharge Date/Time: 05/23/25 12:00 Discharge Medications: New acetaminophen 500 mg Tablet 1,000 mg PO Q6H PRN (Reason: pain/fever) Qty: 0 0RF docusate sodium 100 mg Capsule 100 mg PO DAILY Qty: 60 0RF ibuprofen 600 mg Tablet 600 mg PO Q6H PRN (Reason: Pain) Qty: 90 0RF oxycodone 5 mg Tablet 5 - 10 mg PO Q4H PRN (Reason: Pain) Qty: 10 0RF Continued acetaminophen [Tylenol Extra Strength] 500 mg tablet 500 mg PO Q6H PRN [id number] 3 fatty no.1 27-1-300 mg capsule 1 cap PO DAILY escitalopram oxalate [Lexapro] 20 mg tablet 20 mg PO QDAY famotidine [Pepcid] 20 mg tablet 20 mg PO BID Discontinued (DME) insulin syringe-needle U-100 [Sure Comfort Insulin Syringe] 1 mL 30 gauge x 5/16 syringe See Rx Instructions .ROUTE .MEDSUPPLY Qty: 100 3RF Rx Instructions: As directed Humulin N NPH U-100 Insulin 100 unit/mL suspension 12 unit subcut .hs Qty: 30 1RF Rx Instructions: 12 units at HS (DME) Test Strips Misc See Rx Instructions .MEDSUPPLY Qty: 100 3RF Rx Instructions: Test blood sugar 4 times daily. aspirin 81 mg tablet,chewable 81 mg PO QDAY (DME) lancets Misc See Rx Instructions .MEDSUPPLY Qty: 100 3RF Rx Instructions: Test blood sugar 4 times daily. (DME) Blood Glucose Meter Misc See Rx Instructions .MEDSUPPLY Qty: 1 0RF Rx Instructions: As directed Discharge Orders: Discharge Order (Routine); Ordered 05/23/25 Ordered By: Patricio Casper Patient Education: OB Over the Counter Medication Information, OB /Breast Feeding Additional Instructions: Discharge instructions were reviewed with the patient including signs and symptoms of infection and home going medications Lifting Restrictions: 20 pounds for 6 weeks No not submerge incision under water X 2 weeks? Nothing vaginally for 6 weeks: no tampons or intercourse Do not drive while taking narcotic pain medication(s) Off Work or School for 8 weeks 2-week visit: incision check, discuss infant feeding concerns, review control options and screen for anxiety/depression. 6-week visit for an annual exam. consultation services are available to all mothers and babies for the first year after delivery.? To make an appointment, please call [phone]. Activity Level: Activity as Tolerated Discharge Diet: Regular Follow Up Appointments: [facility] [Provider Group] Forms: MyHealth Info Instructions
[2025-05-23 08:34] VITALS: BP 123/84; PULSE 87; RESP 16; TEMP 36.7; O2SAT 99
[2025-05-23] MEDS: DOCUSATE SODIUM 100 MG CAPSULE PO (08:43)
[2025-05-23] MEDS: IBUPROFEN 600 MG TABLET PO (08:43)
[2025-05-23 10:05] LABS: Glucose 2 Hour 124 mg/dl (70-155)
== END 2025-05-23 12:50 | disposition home or self-care (01) | DRG 540 ==
PROVIDERS: Admitting Provider Obstetrics & Gynecology; Visit Provider Obstetrics & Gynecology
PROC: 10D00Z1 Extraction of Products of Conception, Low, Open Approach (ICD-10-PCS; CPT 59514; principal; 2025-05-21 07:15)
DX: O34.29 Maternal care due to uterine scar from other previous surgery (principal); O24.424 Gestational diabetes mellitus in childbirth, insulin controlled; G89.18 Other acute postprocedural pain; O77.0 Labor and delivery complicated by meconium in amniotic fluid; N85.8 Other specified noninflammatory disorders of uterus; O99.334 Smoking (tobacco) complicating childbirth; F17.210 Nicotine dependence, cigarettes, uncomplicated; O99.344 Other mental disorders complicating childbirth; F32.A Depression, unspecified; O99.214 Obesity complicating childbirth; O40.3XX0 Polyhydramnios, third trimester, not applicable or unspecified; Z3A.37 37 weeks gestation of pregnancy; Z37.0 Single live birth
CPT/HCPCS: 01961; 36415; 64488; 76942; 82947; 82950; 82962; 85018; 85025; 86592; 86850; 86900; 86901; 88307; A4314; A9270; J0665; J0666; J0736; J1100; J1885; J2371; J2405; J2590; J7120